=== PATIENT | female | born 1980 | race Caucasian/White ===

== ENCOUNTER 2019-04-28 00:38 | Emergency (ER) | payer BC, SELFPAY ==
[2019-04-28 00:39] VITALS: BP 134/85; PULSE 87; RESP 18; TEMP 36.7; O2SAT 99; BMI 34.3
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
[2019-04-28] MEDS: Ketorolac 15 MG/ML Vial IM (01:29)
[2019-04-28] MEDS: Morphine 4 MG/ML Syringe IM (01:29)
[2019-04-28 02:06] VITALS: BP 113/81; PULSE 84; RESP 16; O2SAT 96
== END 2019-04-28 02:06 | disposition home or self-care (01) ==
LOC: ED 01:25
PROVIDERS: Emergency Provider Emergency Medicine
DX: S39.012A Strain of muscle, fascia and tendon of lower back, initial encounter (principal); V40.5XXA Car driver injured in collision with pedestrian or animal in traffic accident, initial encounter; Y93.9 Activity, unspecified; Y92.9 Unspecified place or not applicable; F17.200 Nicotine dependence, unspecified, uncomplicated
CPT/HCPCS: 96372; 99282

== ENCOUNTER 2019-11-14 18:19 | Emergency (ER) | payer BC, SELFPAY ==
[2019-11-14 18:22] VITALS: BP 135/80; PULSE 129; RESP 22; TEMP 36.6; O2SAT 96; BMI 34.4
--- NOTE | 2019-11-14 18:47 | EKG12_ITS ---
Test Reason : HEATHER Blood Pressure : / mmHG Vent. Rate : 094 BPM Atrial Rate : 094 BPM P-R Int : 156 ms QRS Dur : 088 ms QT Int : 346 ms P-R-T Axes : 028 001 006 degrees QTc Int : 432 ms Normal sinus rhythm Low voltage QRS Borderline ECG Confirmed by NILTON DELGADO, GHULAM ([id number]), health editor ANTWON GONZALEZ ([id number]) on 11/17/2019 9:27:40 AM Referred By: HEATHER Confirmed By:GHULAM CALLAWAY MD
[2019-11-14] MEDS: 0.9% Normal Saline 1,000 ML 1000 ML IV ×2 (19:01→19:52)
[2019-11-14] MEDS: Ondansetron 4 MG/2 ML Vial IV (19:02)
[2019-11-14] MEDS: Acetaminophen 325 MG Tablet 650 MG PO (19:03)
[2019-11-14 19:07] LABS: Absolute Neutrophil Count 8.5 X10^3/uL (2.0-7.7); Basophil# 0.03 X10^3/uL; Basophil% 0.3 % (0-1); Eosinophil# 0.08 X10^3/uL; Eosinophils% 0.7 % (0-5); Hematocrit 39.4 % (37-47); Hemoglobin 12.9 g/dL (12.0-15.0); Lymphocyte % 18.3 % (19-41); Mean Corp Hgb Conc 32.7 g/dL (32-36); Mean Corpuscular Hgb 28.6 pg (27.0-32.0); Mean Corpuscular Volume 87.4 fL (81-99); Mean Platelet Vol. 11.4 fl (6.2-12.0); Monocyte% 6.1 % (0-10); NRBC Flagged by Analyzer 0 % (0-5); Neutrophil # 8.54 X10^3/uL (2.7-7.7); Neutrophil % 74.3 % (47-70); Platelet Count 259 K/mm3 (150-450); RBC Distribution Width CV 13.5 % (11.6-14.6); RBC Distribution Width SD 42.6 fl (35.1-43.9); Red Blood Count 4.51 M/mm3 (4.2-5.4); White Blood Count 11.5 K/mm3 (4.4-11.0)
--- NOTE | 2019-11-14 19:20 | RAD_ITS ---
STUDY: X-RAY CHEST REASON FOR EXAM: Female, 39 years old. Headache nausea vomiting shortness of breath chills dizziness TECHNIQUE: Frontal view of the chest COMPARISON: None. FINDINGS: The lungs are clear and expanded. There is no demonstrated pleural abnormality. Normal size heart. Normal mediastinum and alexa. Normal visualized pulmonary arteries. Normal visualized aortic arch and descending thoracic aorta. Normal visualized thoracic spine. Normal visualized ribs, clavicles, and shoulders. There is no demonstrated abnormality of the visualized soft tissue structures of the upper abdomen. RAD/Chest 1 View (Portable) IMPRESSION: Normal x-ray examination of the chest. Electronically Signed: Zuly Jean, at 19:34 EDT Tel , Service support ,
[2019-11-14 19:24] LABS: ALB/GLOB Ratio 1.2 RATIO (0.9-2.4); AST(SGOT) 23 U/L (15-37); Alanine Aminotransfer ALT/SGPT 64 U/L (13-56); Albumin, Serum 4.4 g/dL (3.2-5.0); Alkaline Phosphatase 77 U/L (45-117); Anion Gap 9 (5-15); BUN 17 mg/dL (7-18); BUN/Creat Ratio 11.3 RATIO (10-20); Calcium,Total 9.2 mg/dL (8.5-10.1); Chloride 105 mmol/L (98-107); EST Glomerular Filtration Rate 42 mL/min (>60); Est Glom Filt Rate - Afr Amer 50 mL/min (>60); Estimated Creatinine Clearance 44.34 ml/min; Globulin 3.7 g/dL (2.2-4.2); Glucose 108 mg/dL (74-106); Potassium 3.4 mmol/L (3.5-5.1); Protein, Total 8.1 g/dL (6.4-8.2); Sodium Level 139 mmol/L (136-145)
[2019-11-14 19:41] LABS: CPK Total, Creatine Kinase 47 U/L (26-192)
[2019-11-14 20:00] VITALS: BP 119/83; PULSE 90; RESP 14; O2SAT 98
[2019-11-14 20:08] LABS: Bacteria 0 SEEN /hpf (None Seen); Mucous, Urine 0 SEEN /hpf (<or=2+)
[2019-11-14 20:20] LABS: Color, Urine Yellow (Yellow); Glucose, Dipstick Normal (Normal); Ketone-Dipstick Negative (Negative); Leukocyte Esterase-Dipstick 25 /ul (Negative); Nitrite-Dipstick Negative (Negative); Occult Blood-Urine 10 /ul (Negative); Protein-Dipstick Negative (Negative); Specific Gravity, Urine 1.015 (1.002-1.030); Urine Bilirubin Dipstick Negative (Negative); Urine Clarity Sl. Cloudy (Clear); Urine Urobilinogen Normal (Normal)
[2019-11-14 20:33] LABS: Hyaline Cast 0-5 SEEN /lpf (0-5)
[2019-11-14 20:34] LABS: Squamous Epithelial Cells - UA 0-5 SEEN /hpf (5-10)
[2019-11-14 20:42] LABS: Calcium Oxalate Crystals Ur 1+ /hpf (<or=2+); Red Blood Cells-Urine 0-5 SEEN /hpf (0-5)
[2019-11-14 20:43] LABS: White Blood Cells 0-5 SEEN /hpf (0-5)
[2019-11-14] MEDS: DiphenhydrAMINE 50 MG/ML Syringe IV (20:54)
[2019-11-14] MEDS: proCHLORPERazine 10 MG/2 ML Vial IV (20:55)
--- NOTE | 2019-11-14 22:18 | ED.DCSUM_ITS ---
History of Present Illness Chief Complaint: Dizziness Narrative: Patient is a 39-year-old female with history of migraines presenting with generalized weakness and concern for heat exhaustion. 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 She is feeling exhausted and short of breath as if she had been running when she was not. She drinks 2 bottles of water throughout the entire day. She start developed chills in her legs and cramping in her extremities. She had one episode of vomiting and is developed a headache. She came to the emergency room to be evaluated further. Patient states she has not urinated all day. She denies any other complaints at this time. She notes he does have a history of migraine headaches. He states the headache is in the back of her head coming up from her neck. She denies any trauma or head injuries. She denies any associated chest pain. She denies any swelling of her legs, history of DVT or PE. Past Medical History - Allergies and Home Meds Allergies/Adverse Reactions: Allergies Penicillins Allergy (Verified 11/14/19 18:21) Judah Primary Care Physician: Care Physician,No Primary [Primary Care Provider] - Past Medical History: - - Migraines Surgical History: noncontributory, - - , tubal ligation Smoking Status: Current every day smoker Review of Systems General: Reports: Chills, Malaise, Sweats. Denies: Fever Eyes: Denies: Visual changes - bilaterally, Diplopia ENT: Denies: Rhinorrhea, Sore throat Cardiovascular: Denies: Chest pain, Palpitations Respiratory: Reports: Dyspnea. Denies: Cough, Dyspnea on exertion Gastrointestinal: Reports: Nausea, Vomiting. Denies: Abdominal pain, Diarrhea, Melena, Hematochezia Genitourinary: Denies: Dysuria, Hematuria, Frequency Musculoskeletal: Reports: Myalgias. Denies: Back pain, Extremity Pain Skin: Denies: Rash, Wounds Neurological: Denies: Headache, Weakness, Numbness Physical Exam Vital Signs/Narrative: Vital Signs Temp Pulse Resp BP Pulse Ox 11/14/19 20:00 90 14 119/83 H 98 11/14/19 18:22 97.9 F 129 H 22 H 135/80 H 96 Inital Vital Signs reviewed: Yes General: Well nourished, Well developed, No Acute Distress Head: Normocephalic, Atraumatic Eyes: Perrl, EOMI ENT: No rhinorrhea, TM's clear, Dry mucous membranes Neck: Supple, Nontender, No JVD Cardiovascular: Regular rate, Regular rhythm, No murmurs Respiratory: No distress, CTA bilaterally, Chest nontender. Negative for: Rales, Rhonchi, Wheezing Abdomen: Soft, Nontender, Nondistended, Normal bowel sounds Back: Nontender, Normal Inspection Extremities: Nontender, No edema Skin: Normal color, No rash Neurological: Alert, Oriented x3, Cranial nerves II-XII grossly intact, Normal Strength, Normal Sensation Psychological: Normal affect, Normal Mood Diagnostic/Tx/Re-eval Clinical Impression(s) from Imaging Studies Chest X-Ray 11/14/19 19:20 IMPRESSION: Normal x-ray examination of the chest. Electronically Signed: Zuly Jean, at 19:34 EDT Tel , Service support , Laboratory Data 11/14/19 11/14/19 11/14/19 18:57 18:57 18:57 WBC 11.5 H RBC 4.51 Hgb 12.9 Hct 39.4 MCV 87.4 MCH 28.6 MCHC 32.7 RDW Std Deviation 42.6 RDW Coeff of Brett 13.5 Plt Count 259 MPV 11.4 Immature Gran % (Auto) 0.300 Neut % (Auto) 74.3 H Lymph % (Auto) 18.3 L Morrow % (Auto) 6.1 Eos % (Auto) 0.7 Baso % (Auto) 0.3 Absolute Neuts (auto) 8.5 H Absolute Lymphs (auto) 2.10 Nucleated RBC % 0 Sodium 139 Potassium 3.4 L Chloride 105 Carbon Dioxide 25.0 Anion Gap 9 BUN 17 Creatinine 1.50 H Estim Creat Clear Calc 44.34 Est GFR (MDRD) Af Amer 50 L Est GFR (MDRD) Non-Af 42 L BUN/Creatinine Ratio 11.3 Glucose 108 H Calcium 9.2 Total Bilirubin 0.30 AST 23 ALT 64 H Alkaline Phosphatase 77 Total Creatine Kinase 47 Troponin I < 0.015 Total Protein 8.1 Albumin 4.4 Globulin 3.7 Albumin/Globulin Ratio 1.2 Urine Color Urine Clarity Urine pH Ur Specific Blue [place] Urine Protein Urine Glucose (UA) Urine Ketones Urine Occult Blood Urine Nitrite Urine Bilirubin Urine Urobilinogen Ur Leukocyte Esterase Urine RBC Urine WBC Ur Squamous Epith Cells Calcium Oxalate Crystal Urine Bacteria Hyaline Casts Urine Mucus 11/14/19 19:54 WBC RBC Hgb Hct MCV MCH MCHC RDW Std Deviation RDW Coeff of Brtet Plt Count MPV Immature Gran % (Auto) Neut % (Auto) Lymph % (Auto) Morrow % (Auto) Eos % (Auto) Baso % (Auto) Absolute Neuts (auto) Absolute Lymphs (auto) Nucleated RBC % Sodium Potassium Chloride Carbon Dioxide Anion Gap BUN Creatinine Estim Creat Clear Calc Est GFR (MDRD) Af Amer Est GFR (MDRD) Non-Af BUN/Creatinine Ratio Glucose Calcium Total Bilirubin AST ALT Alkaline Phosphatase Total Creatine Kinase Troponin I Total Protein Albumin Globulin Albumin/Globulin Ratio Urine Color Yellow Urine Clarity Sl. Cloudy Urine pH 6.0 Ur Specific [place] 1.015 Urine Protein Negative Urine Glucose (UA) Normal Urine Ketones Negative Urine Occult Blood 10 H Urine Nitrite Negative Urine Bilirubin Negative Urine Urobilinogen Normal Ur Leukocyte Esterase 25 H Urine RBC 0-5 SEEN Urine WBC 0-5 SEEN Ur Squamous Epith Cells 0-5 SEEN Calcium Oxalate Crystal 1+ Urine Bacteria 0 SEEN Hyaline Casts 0-5 SEEN Urine Mucus 0 SEEN - Rhythm Strip Rhythm Strip: Sinus Rhythm Rate: 94 Ectopy: None - EKG Initial EKG Interpretation: Sinus Rhythm, - - Normal sinus rhythm at a rate of [address] segments Normal intervals - Medical Decision Making Patient is evaluated for symptoms consistent with heat exhaustion. Patient was working in the [employer] truck for 7 hours today drinking minimal water. On arrival patient is tachycardic and appears mildly dehydrated. She is not febrile. She is not have any heatstroke. She has a normal neurologic exam. Her work-up is only remarkable for mildly elevated creatinine of 1.5. I do not have a baseline to compare to. Patient is given 2 L of IV fluids. She does not have an elevated CPK and I am not concerned for rhabdomyolysis. Chest x-rays not show any acute process and she has a normal troponin as well as an unremarkable EKG. patient is given 2 L of IV fluid in the emergency room. On reevaluation she states she is feeling better but she is having more of a headache. She states she does have a history of migraine headaches and this feels like it. Patient is given Compazine and Benadryl and now has resolution of her symptoms. She is not given Toradol because of the slight elevation of her creatinine. Patient is encouraged to take Tylenol as needed for symptoms at home. He is encouraged to drink plenty of fluids. She is given a PCP for follow-up. Patient is counseled on signs and symptoms requiring return to the emergency room. Patient verbalizes agreement and understand this plan. Patient discharged home in stable and improved condition. ED Disposition - Plan for ED Patient: Disposition: Home or Assisted Living Diagnosis: Dehydration, Heat stress, Headache Instructions: ED Dehydration Adult Prescriptions: Ondansetron [Zofran Odt] 4 mg PO Q8H PRN PRN #10 tab PRN Reason: Nausea Transmission Status: Pending to [id number] Referrals: Lupe Scott MD [STAFF PHYSICIAN] - Additional Instructions: Drink plenty of fluids. Take Tylenol as needed for aches and pains. Return to emergency room with any worsening symptoms.
[2019-11-14 22:31] VITALS: BP 111/75; PULSE 87; RESP 14; O2SAT 100
== END 2019-11-14 22:32 | disposition home or self-care (01) ==
PROVIDERS: Emergency Provider Emergency Medicine
DX: E86.0 Dehydration (principal); R51 Headache; F17.200 Nicotine dependence, unspecified, uncomplicated
CPT/HCPCS: 71045; 80053; 81001; 82550; 84484; 85025; 93005; 96361; 96374; 96375; 99285; J7030; A4216; J2405

== ENCOUNTER 2020-09-30 19:31 | Emergency (ER) | payer BC, SELFPAY ==
[2020-09-30 19:32] VITALS: BP 124/71; PULSE 94; RESP 15; TEMP 36.6; O2SAT 98; BMI 34.3
--- NOTE | 2020-09-30 19:52 | EDS_ITS ---
HPI History of Present Illness Chief Complaint: Back Detail of Chief Complaint: Back pain that started prior to arrival in the emergency department. Informant: patient Onset/Context/Timing Current Severity: Severe Narrative Narrative: Patient was at a picnic when she decided to take a nap on a picnic table. She then rolled over onto her side to talk to her sister and felt sudden onset of discomfort in the low back. Patient having pain with movement. She denies any trauma. She denies pain rating down her legs. She has had no change in bowel or bladder function. She denies urinary symptoms. Patient states the pain does not radiate down her legs. Prior similar symptoms: No PFSH PFSH Home Medications ondansetron 4 mg PO Q8H PRN PRN #10 tab 11/14/19 [Rx Last Taken Unknown] cyclobenzaprine 10 mg PO TID PRN #20 tablet 09/30/20 [Rx Last Taken Unknown] hydrocodone-acetaminophen 1 tab PO Q4H PRN PRN 2 Days #10 tablet 09/30/20 [Rx Last Taken Unknown] naproxen 500 mg PO BID #14 tab 09/30/20 [Rx Last Taken Unknown] Allergy/AdvReac Type Severity Reaction Status Date / Time Penicillins Allergy Hives Verified 09/30/20 19:34 Social History Smoking Status: Current every day smoker [facility] ED Constitutional Constitutional ED: Reports systems reviewed and no addt'l complaints, except as documented; Denies body ache(s), change in weight or chills Eyes Eyes: Denies acute decrease in peripheral vision, change in vision, double vision or loss of vision ENT ENT ED: Reports none; Denies ear pain, lip swelling, loss taste/smell, neck pain, otalgia or sore throat Cardiovascular Cardiovascular: Reports none; Denies abdominal pain, chest pain with activity, leg edema, lightheadedness, palpitations, rapid heart rate or syncope Respiratory/Chest Respiratory/Chest: Reports none; Denies change in mental status, dry cough, dyspnea, hemoptysis, shortness of breath at rest or shortness of breath with exertion Gastrointestinal Gastrointestinal: Reports none; Denies abdominal pain, change in stool character, diarrhea, hematemesis, hematochezia, melena, rectal bleeding or vomiting Genitourinary Genitourinary ED: Reports none; Denies abdominal discomfort, anuria, dysuria, genital pain or polyuria Musculoskeletal Musculoskeletal: Reports none and back pain; Denies arthralgias, difficulty walking, extremity pain, muscle weakness or myalgias Integumentary Reports none; Denies abscess or rash Neurologic Neurologic: Reports none; Denies abnormal gait, confusion, focal weakness, frequent falls, headache(s), loss of vision, numbness, paresthesias, radicular pain, vertigo or weakness Psychiatric Psychiatric: Reports systems reviewed and no addt'l complaints, except as documented and none; Denies behavioral changes, confusion, difficulty concentrating, hallucinations, suicidal ideation, tactile hallucinations or visual hallucinations Endocrine Endocrinology: Denies none, cold intolerance, excessive sweating, fatigue or heat intolerance Hematologic/Lymphatic Hematologic/Lymphatic: Reports none; Denies anemia, easy bleeding or easy bruising Allergic/Immunologic Allergic/Immunologic ED: Denies as per HPI, none, lip swelling, mouth swelling, throat swelling, tongue swelling or hives EXAM Physical Exam Const Vital Signs: 09/30/20 19:32 Temperature 97.8 F Temperature Source Temporal Pulse Rate 94 Respiratory Rate 15 Blood Pressure 124/71 H Blood Pressure Mean 88 Pulse Ox 98 Oxygen Delivery Method Room Air Positive well nourished and well developed General Appearance ED: well developed and NAD HEENT Reports TM's clear and moist mucous membranes normocephalic and atraumatic; Negative for trauma or tenderness Tympanic Membrane ED: Yes TM's clear Eyes PERRL and EOMs intact bilaterally General Eye ED: Negative for pale conjunctiva or scleral icterus Neck no lymphadenopathy, supple and no JVD General: Negative for tenderness Chest Wall inspection of chest normal and palpation of chest normal Chest: Negative for tenderness Resp normal respiratory effort and clear to auscultation bilaterally Effort and Inspection: Negative for respiratory distress or pain with movement Auscultation: Negative for rhonchi, wheezes or diminished lung sounds Cardio regular rate, regular rhythm, S1 normal heart sound, S2 normal heart sound and no murmurs Peripheral Pulses: pulses 2+ throughout GI normal to inspection, nondistended, normoactive bowel sounds, soft to palpation, non-tender, non-distended and no masses Back/Spine no CVA tenderness Back/Spine Narrative: Patient with diffuse tenderness over the lumbar paraspinal musculature bilaterally. No tenderness over the thoracic or lumbar spine self. Negative straight leg raises. Deep tendon reflexes are plus 2 out of 4 bilaterally at the patella and Achilles. Patient has normal 5 extension. Lumbar Spine / Lower Back: straight leg raise negative bilaterally Extremity normal to inspection General Extremety ED: Negative for edema General Extremity: Negative for edema Neuro oriented x3, CN's II-XII intact bilaterally, no sensory deficits noted and gait normal Sensorium / Orientation: awake, alert, oriented to person, oriented to place and oriented to time Motor Exam: strength 5/5 throughout and strength abnormal Psych mental status grossly normal Skin no rashes or lesions noted and no wounds MDM MDM MDM Narrative Medical decision making narrative: Patient was medicated with morphine, Norflex, and Toradol. Patient will be given a prescription for Flexeril, [place], and naproxen. 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 Discharge Plan Triage Chief Complaint: Back ED Provider: Leonard Berrios Dx/Rx/DC Orders Clinical Impression: Acute lumbar myofascial strain Instructions: ED Back Spasm, No Trauma Prescriptions: New cyclobenzaprine [cyclobenzaprine] 10 MG tablet 10 mg PO TID PRN (Reason: Muscle Spasm) Qty: 20 RF: 0 hydrocodone-acetaminophen [hydrocodone-acetaminophen] 1 TABLET tablet 1 tab PO Q4H PRN PRN (Reason: Pain) 2 Days Qty: 10 RF: 0 naproxen 500 MG tablet 500 mg PO BID Qty: 14 RF: 0 No Action ondansetron 4 MG tablet 4 mg PO Q8H PRN PRN (Reason: Nausea) Qty: 10 RF: 0 Primary Care Provider: Care Physician,No Primary Referrals: Domonique Arias MD [STAFF PHYSICIAN] - 5-7 Days Care Physician,No Primary [Primary Care Provider] - Disposition Disposition: Home, self care
[2020-09-30] MEDS: Morphine 4 MG/ML Syringe IM (20:05)
[2020-09-30] MEDS: Ketorolac 60 MG/2 ML Vial IM (20:06)
[2020-09-30] MEDS: Orphenadrine 60 MG/2 ML Ampul IM (20:06)
== END 2020-09-30 20:44 | disposition home or self-care (01) ==
LOC: ED 20:07
PROVIDERS: Emergency Provider Emergency Medicine
DX: S39.012A Strain of muscle, fascia and tendon of lower back, initial encounter (principal); F17.200 Nicotine dependence, unspecified, uncomplicated; X50.1XXA Overexertion from prolonged static or awkward postures, initial encounter; Y93.84 Activity, sleeping; Y92.830 Public park as the place of occurrence of the external cause; Y99.8 Other external cause status
CPT/HCPCS: 96372; 99281

== ENCOUNTER → 2025-02-04 | Outpatient (CLI) | payer BC, SELFPAY ==
[2025-02-04 18:55] LABS: Hematocrit 40.7 % (37-47); Hemoglobin 13.9 g/dL (12.0-15.0); Immature Granulocytes Count 0.020 X10^3/uL (0.0-0.0); Mean Corp Hgb Conc 34.2 g/dL (32-36); Mean Corpuscular Volume 88.1 fL (81-99); Mean Platelet Vol. 11.9 fl (6.2-12.0); NRBC Flagged by Analyzer 0 % (0-5); Platelet Count 224 K/mm3 (150-450); RBC Distribution Width CV 13.0 % (11.6-14.6); RBC Distribution Width SD 41.7 fl (35.1-43.9); Red Blood Count 4.62 M/mm3 (4.2-5.4); White Blood Count 8.1 K/mm3 (4.4-11.0)
[2025-02-04 19:59] LABS: Cholesterol 182 mg/dL (<=200); Ferritin 38 ng/mL (22-378); Low Density Lipoprotein Calc. 110 mg/dL; T3 Total - Triiodothyronine 1.66 ng/mL (0.80-2.00); T4 Total, Thyroxin 6.8 ug/dL (4.8-13.9); Triglycerides 120 mg/dL; Very Low Density Lipoprotein 24 mg/dL (5-40); Vitamin B12 321 pg/mL (180-914); Vitamin D,25 Hydroxy 24.8 ng/mL (30-100); cholesterol:hdl ratio screen 3.75
[2025-02-04 20:26] LABS: Iron 72 ug/dL (50-170)
[2025-02-04 20:30] LABS: AST(SGOT) 25 U/L (<=31); Alanine Aminotransfer ALT/SGPT 32 U/L (<=34); Albumin, Serum 4.1 g/dL (3.5-5.0); Alkaline Phosphatase 58 U/L (35-104); Anion Gap 10 (5-15); BUN 11 mg/dL (4-19); BUN/Creat Ratio 13.1 RATIO (10-20); Calcium,Total 8.9 mg/dL (7.6-11.0); Carbon Dioxide 23.6 mmol/L (21.0-32.0); Chloride 105 mmol/L (98-108); Globulin 2.7 g/dL (2.2-4.2); Glucose 108 mg/dL (70-99); Potassium 3.9 mmol/L (3.3-5.1)
[2025-02-06 22:42] LABS: FOLATES,SERUM (FOLIC ACID) 7.23 ng/mL (4.60-34.80)
[2025-02-09 20:08] LABS: VITAMIN B6 20.8 ug/L (3.4-65.2)
== END | disposition home or self-care (01) ==
PROVIDERS: PCP Nurse Practitioner; Visit Provider Nurse Practitioner
DX: F41.1 Generalized anxiety disorder (principal)
CPT/HCPCS: 36415; 80053; 80061; 82306; 82607; 82728; 82746; 83036; 83540; 84207; 84436; 84443; 84480; 85025